=== PATIENT | female | born 1990 | race Caucasian/White ===

== ENCOUNTER 2018-01-23 21:32 | Emergency (ER) | payer BC, SELFPAY ==
[2018-01-23 21:34] VITALS: BP 136/82; PULSE 79; RESP 18; TEMP 36.5; O2SAT 97; BMI 39.0
--- NOTE | 2018-01-23 22:12 | EKG12_ITS ---
Test Reason : WEAKNESS Blood Pressure : / mmHG Vent. Rate : 066 BPM Atrial Rate : 066 BPM P-R Int : 140 ms QRS Dur : 082 ms QT Int : 420 ms P-R-T Axes : 056 007 031 degrees QTc Int : 440 ms Normal sinus rhythm Normal ECG Confirmed by TREY VALDES ([id number]), dictionary editor EVERETTE GARCIA ([id number]) on 02/04/2018 6:43:13 PM Referred By: AL Confirmed By:TREY VALDES
--- NOTE | 2018-01-23 22:12 | CT_ITS ---
CT Head or Brain W/O Contrast INDICATION: HEADACHE,DIZZINESS,NAUSEA AND GENERALIZED WEAKNESS,POSTERIOR HEAD PAIN X 1 WEEK,PT DENIES INJURY,SHIELDED COMPARISON: None TECHNIQUE: Noncontrast axial CT examination of the brain. Radiation dose optimization applied. FINDINGS: The ventricular system is normal in size and symmetric. The cortical sulci, sylvian fissures, and basal cisterns are well seen. The hernandez-white matter junction is distinct. There is no evidence of acute intracranial hemorrhage, mass effect, midline shift, or abnormal extra-axial collection. The calvarium is intact and the visualized paranasal sinuses and mastoid air cells are clear. CT/Brain/Head without Contrast IMPRESSION: No evidence of acute intracranial abnormality by noncontrast CT. at 2301 Reported and signed by: Blanca Navarro MD Electronically Signed: Blanca Navarro MD at 22:59 EDT Tel , Service support ,
--- NOTE | 2018-01-23 22:14 | ED.VISSUMM ---
- ER Visit Summary Date of Service: 01/23/18 Chief Complaint: [Dizziness] History of Present Illness: The patient is a 27 F [presents the emergency department with 1 week of malaise. She has had posterior occipital headaches every day most of the day. She gets about 20 bouts that last for a few seconds where she feels off balance in her vision feels tunneled. Her arms and head feel heavy. She has had intermittent nausea. No fevers or chills no sore throat no cough no abdominal pain appetite has been decreased because of the nausea. Urination has been normal. There was no head injury. Her last menstrual cycle was a week and a half ago and that has been normal. She had similar episodes when she was 15 had an EEG which showed Antoinette mall seizures but she has not followed up or had issues with this in quite some time.] Physical Examination: [] WN WD NAD PERRL EOMI visual slaughter intact MMM NECK supple and nontender, no masses RRR no murmur rub or gallop, no peripheral edema, symmetric radial pulses CTAB no respiratory distress ABDOMEN is soft and nontender, normal bowel sounds, no distension, no rebound or guarding SKIN is warm and dry no rashes Alert and Oriented x3, CN II-XII in tact, no motor or sensory deficits, gait normal cerebellar testing is normal Babinski is downgoing bilaterally patient walks heel to toe without disequilibrium No lymphadenopathy Test Results: [EKG is sinus at a rate of 66 no acute ischemic changes or conduction abnormalities intervals are within normal limits no ST segment changes] Emergency Department Course and Treatment: [Screening labs were obtained and showed a mild elevation of her BUN but are otherwise unremarkable. Urine has small occult blood and leukoesterase but no white cells red cells. She is not . She was given fluids and Zofran. Her symptoms did improve. CT the head is unremarkable. Because of her history of similar episodes when she was 15 that were diagnosed with seizures I will refer her to neurology and she will follow-up with her primary doctor while awaiting appointment. She understands reasons for which to return.] Treatment Plan: [] Disposition: [Discharge] Impression: [Dizziness] This note was generated with [employer] software. It may contain incorrect words, spelling, and punctuation that were not noted in review of the chart prior to signing ED Disposition - Plan for ED Patient: Chief Complaint: Dizziness Referrals: Care Physician,No Primary [NON-STAFF] -
--- NOTE | 2018-01-23 22:20 | ED.RN ---
NO OLD EKGS IN MUSE.
[2018-01-23] MEDS: Ondansetron 4 MG/2 ML Vial IV (22:26)
[2018-01-23 22:28] LABS: Hematocrit 40.3 % (37-47); Hemoglobin 14.1 g/dl (12.0-15.0); Mean Corpuscular Hgb 30.1 pg (27.0-32.0); Mean Corpuscular Volume 86.1 fL (81-99); Mean Platelet Vol. 9.2 fl (6.2-12.0); Platelet Count 383 K/mm3 (150-450); RBC Distribution Width CV 12.4 % (11.6-14.6); RBC Distribution Width SD 39.2 fl (35.1-43.9); Red Blood Count 4.68 M/mm3 (4.2-5.4); White Blood Count 8.1 K/mm3 (4.4-11.0)
[2018-01-23 22:30] LABS: POSITIVE COUNT NO; POSITIVE DIFFERENTIAL NO; POSITIVE MORPHOLOGY NO
[2018-01-23 23:07] LABS: Basophil% 0.3 % (0-1); Lymphocyte % 29.5 % (19-41); Monocyte% 8.4 % (0-10); Neutrophil % 60.5 % (47-70)
[2018-01-23 23:08] LABS: ALB/GLOB Ratio 1.1 RATIO (0.9-2.4); AST(SGOT) 19 U/L (15-37); Absolute Lymphocyte Count 2.33 X10^3/ul (0.83-4.51); Absolute Neutrophil Count 4.8 X10^3/uL (2.0-7.7); Alanine Aminotransfer ALT/SGPT 31 U/L (13-56); Albumin, Serum 4.1 g/dL (3.2-5.0); Alkaline Phosphatase 71 U/L (45-117); Anion Gap 8 (5-15); BUN 20 mg/dL (7-18); BUN/Creat Ratio 24.1 RATIO (10-20); Basophil# 0.02 X10^3/uL; Calcium,Total 8.8 mg/dL (8.5-10.1); Chloride 107 mmol/L (98-107); Creatinine, Serum 0.83 mg/dL (0.55-1.02); EST Glomerular Filtration Rate 88 mL/min (>60); Eosinophil# 0.08 X10^3/uL; Est Glom Filt Rate - Afr Amer 106 mL/min (>60); Estimated Creatinine Clearance 92.42 ml/min; Globulin 3.8 g/dL (2.2-4.2); Glucose 74 mg/dL (74-106); Lymphocyte # 2.33 X10^3/ul (4.0); Monocyte# 0.66 X10^3/uL; Neutrophil # 4.79 X10^3/uL (2.7-7.7); Potassium 3.5 mmol/L (3.5-5.1); Protein, Total 7.9 g/dL (6.4-8.2); Sodium Level 139 mmol/L (136-145); Thyroid Stim Hormone (TSH) 2.56 uIU/mL (0.358-3.74)
[2018-01-23 23:38] LABS: Mucous, Urine 0 SEEN /hpf (<or=2+)
[2018-01-23 23:40] LABS: Color, Urine Yellow (Yellow); Glucose, Dipstick Normal (Normal); Ketone-Dipstick Negative (Negative); Leukocyte Esterase-Dipstick 25 /ul (Negative); Nitrite-Dipstick Negative (Negative); Occult Blood-Urine 25 /ul (Negative); Protein-Dipstick Negative (Negative); Urine Bilirubin Dipstick Negative (Negative); Urine Clarity Sl. Cloudy (Clear); Urine Urobilinogen Normal (Normal)
[2018-01-23 23:43] LABS: Internal QC Validated? YES +Cl - CLEAR BKGD; Pregnancy, Urine Negative Negative
[2018-01-23 23:47] LABS: Amorphous Sediment 1+; Bacteria RARE /hpf (None Seen); Red Blood Cells-Urine 0-5 SEEN /hpf (0-5); Squamous Epithelial Cells - UA 0-5 SEEN /hpf (5-10); White Blood Cells 0-5 SEEN /hpf (0-5)
--- NOTE | 2018-01-24 00:19 | ED.DEP ---
ED Disposition - Plan for ED Patient: Chief Complaint: Dizziness Instructions: ED Dizziness [facility] Referrals: Jethro Reddy MD [STAFF PHYSICIAN] - 1-2 Weeks Seamus Frye MD [Primary Care Provider] - 3-5 Days
[2018-01-24] MEDS: Ketorolac 30 MG/ML Syringe IV (00:20)
[2018-01-24 00:21] VITALS: PULSE 62; RESP 18; O2SAT 98
[2018-01-24 00:33] VITALS: PULSE 62; RESP 18; O2SAT 98
[2018-01-24 00:46] LABS: Carboxyhemoglobin Frac (CO) 1.6 % (0.0-1.5)
== END 2018-01-24 00:34 | disposition home or self-care (01) ==
PROVIDERS: Emergency Provider Emergency Medicine; PCP Family Medicine
DX: R42 Dizziness and giddiness (principal)
CPT/HCPCS: 70450; 80053; 81001; 81025; 82375; 84443; 85025; 93005; 99284; J7030; J7040; A4216; J2405

== ENCOUNTER → 2018-04-04 12:09 | Outpatient (CLI) | payer BC, SELFPAY ==
[2018-04-10 13:05] LABS: HPV Reflexed? NOT INDICATED
== END ==
PROVIDERS: PCP Family Medicine; Visit Provider Obstetrics & Gynecology
DX: Z12.4 Encounter for screening for malignant neoplasm of cervix (principal); Z12.72 Encounter for screening for malignant neoplasm of vagina
CPT/HCPCS: 88175; G0145

== ENCOUNTER → 2018-05-31 09:31 | Outpatient (CLI) | payer BC, SELFPAY ==
--- NOTE | 2018-05-31 10:00 | MRI_ITS ---
STUDY: MRI BRAIN WITHOUT CONTRAST REASON FOR EXAM: Female, 28 years old. H/O seizureS, F/U NO NEW COMPLAINTS. TECHNIQUE: Standardized multiplanar fat and water weighted pulse sequences were obtained. COMPARISON: January 23, 2018 FINDINGS: Normal size of the ventricles and extra-axial spaces for the patient's age. Normal white matter tracts of the supratentorial brain. Normal bilateral basal ganglia. Normal thalami. There is no extra-axial fluid accumulation. Normal flow voids within the major intracranial circulation suggesting patency by spin echo criteria. Normal sella turcica, pituitary gland, infundibular stalk, optic chiasm and hypothalamus. Normal tectal plate and pineal gland. Normal midbrain, pepe and medulla. Normal cerebellum. Normal basal cisterns. Normal bilateral temporal bones. Normal bilateral internal auditory canals. No demonstrated orbital abnormality, within the constraints of a routine brain study. Normal visualized paranasal sinuses. Normal calvarium and skull base. Normal visualized soft tissue structures. Normal visualized upper cervical spine. MRI/Brain without Contrast IMPRESSION: Normal unenhanced MRI of the brain. Electronically Signed: Maxine Mehta MD at 8:17 EDT Tel , Service support ,
== END ==
PROVIDERS: Family Provider Family Medicine; PCP Family Medicine; Referring Provider Psychiatry & Neurology Neurology; Visit Provider Psychiatry & Neurology Neurology
DX: R56.9 Unspecified convulsions (principal)
CPT/HCPCS: 70551

== ENCOUNTER 2019-05-16 14:56 | Emergency (ER) | payer BC, SELFPAY ==
[2019-05-16 14:58] VITALS: BP 125/67; PULSE 80; RESP 22; TEMP 37.1; O2SAT 100; BMI 32.5
--- NOTE | 2019-05-16 15:31 | EKG12_ITS ---
Test Reason : CP Blood Pressure : / mmHG Vent. Rate : 075 BPM Atrial Rate : 075 BPM P-R Int : 138 ms QRS Dur : 082 ms QT Int : 388 ms P-R-T Axes : 058 022 019 degrees QTc Int : 433 ms Normal sinus rhythm Normal ECG Confirmed by CORRINE ALMENDAREZ, VIC ([id number]), commercial production editor NIKKIE BETHEA ([id number]) on 05/19/2019 9:15:51 AM Referred By: COLEEN Confirmed By:VIC CASTLE MD
--- NOTE | 2019-05-16 15:35 | RAD_ITS ---
STUDY: X-RAY CHEST REASON FOR EXAM: Female, 28 years old. Chest pain/pressure TECHNIQUE: Single AP portable view of the chest. COMPARISON: None. FINDINGS: The lungs are clear and expanded. There is no demonstrated pleural abnormality. Normal size heart. Normal mediastinum and eri. Normal visualized pulmonary arteries. Normal visualized aortic arch and descending thoracic aorta. Normal visualized thoracic spine. Normal visualized ribs, clavicles, and shoulders. There is no demonstrated abnormality of the visualized soft tissue structures of the upper abdomen. RAD/Chest 1 View IMPRESSION: Normal x-ray examination of the chest. Electronically Signed: Mandeep Quinteros MD at 15:52 EDT , Service support ,
--- NOTE | 2019-05-16 15:54 | ED.DCSUM_ITS ---
History of Present Illness Chief Complaint: Chest Pain Informant: Patient Onset: Days Narrative: Patient presents to the ED with intermittent chest pain for the last 4 days. She describes as a dull aching sensation. It waxes and wanes. She does report some associated shortness of breath. Today, the pain was more constant and she became worried. She is 5 weeks . She has never had anything like this before. She denies any recent immobilization, estrogen use, history of malignancy. She is no history of PE or DVT. No cardiac risk factors. She is 5 weeks . G3,P1, A1. Past Medical History - Allergies and Home Meds Allergies/Adverse Reactions: Allergies No Known Allergies Allergy (Verified 05/16/19 14:57) Primary Care Physician: Seamus Frye MD [Primary Care Provider] - Smoking Status: Never smoker Review of Systems General: Denies: Chills, Fever, Sweats Eyes: Denies: Visual changes - bilaterally, Diplopia ENT: Denies: Rhinorrhea, Sore throat Cardiovascular: Reports: Chest pain. Denies: Palpitations Respiratory: Denies: Dyspnea, Cough, Dyspnea on exertion Gastrointestinal: Denies: Abdominal pain, Nausea, Vomiting, Diarrhea, Melena, Hematochezia Genitourinary: Denies: Dysuria, Hematuria, Frequency Musculoskeletal: Denies: Back pain, Extremity Pain Skin: Denies: Rash, Wounds Neurological: Denies: Headache, Weakness, Numbness Physical Exam Vital Signs/Narrative: Vital Signs Temp Pulse Resp BP Pulse Ox 05/16/19 14:58 98.7 F 80 22 H 125/67 H 100 General: Well nourished, Well developed, No Acute Distress Head: Normocephalic, Atraumatic Eyes: Perrl, EOMI ENT: Moist mucous membranes, No rhinorrhea Neck: Supple, Nontender Cardiovascular: Regular rate, Regular rhythm, No murmurs Respiratory: No distress, CTA bilaterally, Chest nontender Abdomen: Soft, Nontender, Nondistended, Normal bowel sounds Back: Nontender, Normal Inspection Extremities: Nontender, No edema Skin: Normal color, No rash Neurological: Alert, Oriented x3, Cranial nerves II-XII grossly intact, Normal Strength, Normal Sensation Psychological: Normal affect, Normal Mood Diagnostic/Tx/Re-eval - EKG Initial EKG Interpretation: Sinus Rhythm, No Acute Injury Pattern - Medical Decision Making Patient presents to the ED with a 4-day history of chest pain. PERC negative. EKG shows no ischemic changes and normal sinus rhythm. Chest x-ray is unremarkable. At this time, I think it is safe for the patient be discharged home. She was advised to follow-up with PCP if symptoms persist or worsen as well as her SPINNER OPERATOR. She has an appointment in the next week or so with her SPINNER OPERATOR. She was educated on signs/symptoms to return to the ED. She is provided discharge instructions and agreeable to plan. Impression: Chest pain, unknown etiology Disposition: Home stable ED Disposition - Plan for ED Patient: Disposition: Home or Assisted Living Diagnosis: Chest pain Instructions: CHEST PAIN, Uncertain Cause Referrals: Seamus Frye MD [Primary Care Provider] -
[2019-05-16 16:11] VITALS: BP 119/74; PULSE 79; RESP 18; O2SAT 99
--- NOTE | 2019-05-16 16:11 | ED.RN ---
THIS NURSE REVIEWED D/C INSTRUCTIONS WITH PT. PT VERBALIZED UNDERSTANDING OF INSTRUCTIONS. PT DENIES FURTHER NEEDS OR QUESTIONS AT THIS TIME.
== END 2019-05-16 16:11 | disposition home or self-care (01) ==
PROVIDERS: Emergency Provider Physician Assistant; Family Provider Family Medicine; PCP Family Medicine
DX: O26.891 Other specified pregnancy related conditions, first trimester (principal); R07.9 Chest pain, unspecified; Z3A.01 Less than 8 weeks gestation of pregnancy
CPT/HCPCS: 71045; 93005; 99282

== ENCOUNTER 2020-01-09 09:30 | Inpatient (IN) | payer BC, SELFPAY ==
--- NOTE | 2020-01-08 07:38 | HP.PCM_ITS ---
- Problem List (1) 39 weeks gestation of Status: Acute (2) History of delivery Status: Acute History Date of Admission: 01/09/20 Final VIRGIL: 01/16/20 Gestational age: 38 Weeks and 6 Days History of this : This is a 29 year-old, G 2, P 1, at 39 weeks gestational age who presents for a scheduled repeat section. Medical History: Medical History (Last Updated 01/08/20 @ 07:[address] Monique Lilly, DO) ADD (attention deficit disorder) F98.8 Anemia D64.9 Anxiety F41.9 Deliberate self-cutting Z72.89 Depressed F32.9 History of suicide attempt Z91.5 PTSD (post-traumatic stress disorder) F43.10 Seizure R56.9 Allergies No Known Allergies Allergy (Verified 05/16/19 14:57) Home Medications: Home Medications NK 01/23/18 Smoking Status: Never smoker Alcohol: None Substance Use Type: Cocaine - In past, has not used since early , Methamphetamine - In past, has not used since early Number of Fetus(es): 1 History Past Pregnancies: Past Pregnancies Delivery Date Name GA/ Weeks Outcome Route Wt Infant Sex Labor Length Anesthesia Delivery Location Provider FOB Expected Infant Delivery Method: Repeat Section Physical Exam General: Alert, No apparent distress HEENT: Atraumatic Cardiovascular: Regular rate Lungs: Clear to auscultation Abdomen: Soft, Non Tender, Non-Distended Extremities:: No edema Neurological: Neuro grossly intact Estimated gestational size: Appropriate for gestational size Presentation: Cephalic Assessment/Plan All Active Problems 39 weeks gestation of (Acute) History of delivery (Acute) This is a 29 year-old, who presents at 39 weeks for a scheduled repeat C- section. She has a history of a prior section. After discussion of risks, benefits, alternatives to repeat section the patient consented and desires to proceed with surgery. General preoperative and postoperative care was reviewed. Questions were answered. The patient indicates a desire to proceed with a repeat .
[2020-01-09] VITALS (19 sets, daily range): BP systolic 92–116; BP diastolic 36–96; PULSE 60–79; RESP 14–18; TEMP 35.8–36.7; O2SAT 97–100; BMI 36.8
[2020-01-09] MEDS: Lactated Ringers 1,000 ML 999 ML IV (09:50)
[2020-01-09 10:08] LABS: Absolute Lymphocyte Count 1.44 X10^3/uL (0.83-4.51); Absolute Neutrophil Count 4.4 X10^3/uL (2.0-7.7); Basophil# 0.04 X10^3/uL; Basophil% 0.6 % (0-1); Eosinophil# 0.06 X10^3/uL; Eosinophils% 0.9 % (0-5); Hematocrit 34.9 % (37-47); Hemoglobin 11.9 g/dL (12.0-15.0); Lymphocyte # 1.44 X10^3/ul (4.0); Lymphocyte % 21.3 % (19-41); Mean Corp Hgb Conc 34.1 g/dL (32-36); Mean Corpuscular Hgb 30.7 pg (27.0-32.0); Mean Corpuscular Volume 90.2 fL (81-99); Monocyte# 0.77 X10^3/uL; Monocyte% 11.4 % (0-10); NRBC Flagged by Analyzer 0 % (0-5); Neutrophil # 4.44 X10^3/uL (2.7-7.7); Neutrophil % 65.5 % (47-70); Platelet Count 285 K/mm3 (150-450); RBC Distribution Width CV 12.7 % (11.6-14.6); RBC Distribution Width SD 41.3 fl (35.1-43.9); Red Blood Count 3.87 M/mm3 (4.2-5.4); White Blood Count 6.8 K/mm3 (4.4-11.0)
[2020-01-09] MEDS: Lactated Ringers 1,000 ML 150 ML IV (10:58)
[2020-01-09] MEDS: Sodium Citrate/Citric Acid 30 ML UDC PO (11:55)
[2020-01-09] MEDS: Cefazolin 2 GM in 0.9% Normal Saline 100 ML IV (12:00)
--- NOTE | 2020-01-09 13:51 | OP.PCM_ITS ---
Problem List (1) 39 weeks gestation of Status: Acute (2) History of delivery Status: Acute (3) Encounter for intrauterine device placement Status: Acute Report of Operation Date of Procedure: 01/09/20 Pre-Operative Diagnosis: 39 week gestation, history of prior section, desires repeat section, desires Mirena IUD placement Post-Operative Diagnosis: As above Surgery/Procedure Performed:: RLTCS via pfannenstiel incision, Mirena IUD placement Description of Surgical Findings:: Moderate amount of adhesions. The fascia was densely adhered to the rectus muscles. The rectus muscles were adhered in the midline. The omentum was significantly adhered to the anterior peritoneum. Minimal amount of adhesions from bladder to anterior surface of uterus. Normal-appearing uterus, bilateral tubes, bilateral ovaries. Viable female cephalic presentation. Clear fl uid. Intact and normal-appearing placenta with three-vessel cord. Type of Anesthesia:: Spinal Special Medications: Mirena IUD Specimen's removed: Placenta Drains: Denis Estimated Blood Loss (mL): 1000 Fluids Replaced: 1500 Description of Procedure: Risks benefits, alternatives to the Mirena IUD were discussed with the patient. Discussed option for immediate placement versus placement at the 6-week visit. Patient consented to immediate Mirena IUD placement and desired for the IUD be placed at the time of the . Patient was taken to the operating room where spinal anesthesia was found to be adequate. She was prepped and draped in the dorsal position with a leftward tilt. A Pfannenstiel skin incision was made with a scalpel and carried down to the underlying layer of fascia. The fascia was incised in midline. The fascia was extended laterally using Kelly scissors. The fascia was dissected off of the rectus muscles using a combination of sharp and blunt dissection. The fascia was densely adhered to the rectus muscles. Upon dissecting the fascia off the rectus muscles, the peritoneal cavity was entered. A sweep was performed in the peritoneal cavity and omental adhesions were noted. The incision was extended bluntly. Significant omental adhesions were noted to the anterior peritoneum. Adhesions were taken down with Bovie cautery and the omentum was noted to be hemostatic. Bladder flap was created and there were minimal adhesions of the bladder to the anterior surface of the uterus. A low transverse incision was made with a scalpel on the uterus. The infant was delivered without force or delay in cephalic presentation. Cord was clamped and cut immediately due to bleeding from the hysterotomy. The was handed off to the nursery staff. The placenta was removed. The placenta was normal-appearing with a three-vessel cord. Uterus was exteriorized. The uterus was cleared of all clot and debris. The Mirena IUD was placed at the fundus of the uterus. The cervix was dilated and the Mirena IUD strings were brought down to the cervix. The hysterotomy was closed in a running locked fashion. It was closed in 2 layers using Vicryl. Several additional [id number] sutures were placed for hemostasis. The uterus was placed back into the abdomen. Arrista was placed over the hysterotomy. Hemostasis was again noted. The peritoneum was unable to be closed given the omental adhesions. The omentum was again examined and noted to be hemostatic. The rectus muscles were examined and noted to be hemostatic. The fascia was then closed in a running layer with Vicryl. The subcutaneous space was irrigated and made hemostatic with Bovie cautery. The subcutaneous space was reapproximated with Vicryl. The skin was closed with subcuticular fashion using Monocryl suture. Instrument counts were correct. The patient was taken to recovery in stable condition. Grafts/Implants Used: Mirena IUD - Complications None - Admit VTE Documentation VTE Present on Admission: No VTE Mechan Device Prophylaxis: SCD's VTE Pharm Prophylaxis ordered?: Yes Delivery Classification: Scheduled Indications for : Repeat Elective Amniotic Membrane Rupture Type: Artificial Amniotic Fluid Description: Clear Drain: Denis to straight drain Cord Entanglement: None Cord Vessel Description: 3 Vessels Infant Gender: Female (1 minute): 8 (5 minute): 9 Delayed cord clamping: No Antibiotic Given: Ancef 2 grams IV x1 Pt instructed on risks of surgery: Bleeding, Infection, Need for Future C- Sections, Injury to surrounding structure(s) including bowel and bladder, Availability of other non-permanent control options Complications: None
[2020-01-09] MEDS: Oxytocin 30 units/NS 500 ml 30 UNITS/500 ML IV.SOLN 167 UNITS IV (14:15)
[2020-01-09] MEDS: Ondansetron 4 MG/2 ML Vial IV ×2 (16:30→20:48)
[2020-01-09 16:51] LABS: Amphetamine Urine VISTA NEGATIVE (<1000 ng/mL); Barbiturate Urine VISTA NEGATIVE (< 200 ng/mL); Benzodiazepine Urine VISTA NEGATIVE (< 200 ng/mL); Cocaine Urine VISTA NEGATIVE (< 300 ng/mL); Ecstacy Urine VISTA NEGATIVE (< 500 ng/mL); Methadone Urine VISTA NEGATIVE (< 300 ng/mL); PCP Urine VISTA NEGATIVE (< 25 ng/mL); THC Urine VISTA NEGATIVE (< 50 ng/mL); Vista UDS pH Range 7
[2020-01-09] MEDS: Lactated Ringers 1,000 ML 100 ML IV (17:26)
[2020-01-09 18:26] LABS: Hematocrit 32.7 % (37-47); Hemoglobin 11.1 g/dL (12.0-15.0); Mean Corp Hgb Conc 33.9 g/dL (32-36); Mean Corpuscular Hgb 30.8 pg (27.0-32.0); Mean Corpuscular Volume 90.8 fL (81-99); Mean Platelet Vol. 10.2 fl (6.2-12.0); Platelet Count 274 K/mm3 (150-450); RBC Distribution Width CV 12.7 % (11.6-14.6); RBC Distribution Width SD 42.2 fl (35.1-43.9); White Blood Count 12.6 K/mm3 (4.4-11.0)
[2020-01-09] MEDS: Ketorolac 30 MG/ML Syringe IV (18:59)
--- NOTE | 2020-01-09 21:45 | NURSING ---
Pt up to chair at 2044, ambulating well with no assistance from RN walking beside pt. Pt reports no pain but some nausea. Pt given zofran for nausea at 2047. Pt back to bed at 2134, tolerated well. Pt still slightly nauseous. RN will continue to monitor.
--- NOTE | 2020-01-09 22:10 | NURSING ---
Dr. Lilly notified of lower BP by previous RN, RN to continue with current plan of care.
[2020-01-10 00:55] VITALS: BP 109/67; PULSE 75; RESP 16; TEMP 36.5; O2SAT 98
[2020-01-10] MEDS: Ketorolac 30 MG/ML Syringe IV ×4 (00:58→18:22)
[2020-01-10] MEDS: 0.9% Saline Lock 10 ML Syringe IV ×4 (00:59→18:23)
[2020-01-10] MEDS: Enoxaparin 40 MG/0.4 ML Syringe SC (00:59)
[2020-01-10 04:36] VITALS: BP 100/55; PULSE 63; RESP 16; TEMP 36.6; O2SAT 97
[2020-01-10 05:50] LABS: Hematocrit 27.5 % (37-47); Hemoglobin 9.3 g/dL (12.0-15.0); Mean Corp Hgb Conc 33.8 g/dL (32-36); Mean Corpuscular Hgb 30.9 pg (27.0-32.0); Mean Corpuscular Volume 91.4 fL (81-99); Mean Platelet Vol. 10.1 fl (6.2-12.0); Platelet Count 244 K/mm3 (150-450); RBC Distribution Width CV 12.9 % (11.6-14.6); RBC Distribution Width SD 42.1 fl (35.1-43.9); Red Blood Count 3.01 M/mm3 (4.2-5.4); White Blood Count 8.9 K/mm3 (4.4-11.0)
[2020-01-10 08:00] VITALS: BP 95/63; PULSE 68; RESP 16; TEMP 36.7
--- NOTE | 2020-01-10 10:52 | PCM.PN.OB ---
Patient Problems: Active and Suspected Problems (Last Updated 01/08/20 @ 07:[address] Monique Lilly, DO) Encounter for intrauterine device placement (Acute) Subjective: Doing well per patient and nursing staff. Ambulating and taking PO without difficulty. Voiding and passing flatus. . Mood stable. Partner at bedside. Denies any increased pain, controlled with pain medication. Denies chest pain, shortness of breath, leg pain or other concerns. Lochia normal. - Physical Exam Vitals/I&O's: Vital Signs Temp Pulse Resp BP Pulse Ox 98.1 F 68 16 95/63 97 01/10/20 08:00 01/10/20 08:00 01/10/20 08:00 01/10/20 08:00 01/10/20 04:36 Oxygen Delivery Method Room Air Weight: 221 lb 12.56 oz Body Mass Index (BMI) 36.8 Intake and Output for Last 24 Hours 01/08/20 01/09/20 01/10/20 23:59 23:59 23:59 Intake Total 3265 / 3265 755 / 755 Output Total 1150 / 1150 1500 / 1500 Balance 2115 / 2115 -745 / -745 General: Alert, Oriented x3, Cooperative HEENT: Atraumatic, Normocephalic Neck: Trachea Midline Lungs: Clear to auscultation, Normal air movement, No rhonchi, No wheeze Cardiovascular: Regular rate, Regular Rhythm, No murmurs Abdomen: Hypoactive Bowel Sounds - Fundus firm 3 below U. Dressing dry and intact Extremities: No edema Psych/Mental Status: Normal Affect, Appropriate Laboratory Results 01/09/20 09:50: Blood Type B POSITIVE, Antibody Screen NEGATIVE 01/09/20 13:00: Urine Opiates Screen NEGATIVE, Urine Methadone Screen NEGATIVE, Ur Barbiturates Screen NEGATIVE, Ur Phencyclidine Scrn NEGATIVE, Ur Amphetamines Screen NEGATIVE, U Methamphetamin-MDMA NEGATIVE, U Benzodiazepines Scrn NEGATIVE, Urine Cocaine Screen NEGATIVE, U Cannabinoids Screen NEGATIVE, Ur Drug Screen Comment 01/09/20 18:00: WBC 12.6 H, RBC 3.60 L, Hgb 11.1 L, Hct 32.7 L, MCV 90.8, MCH 30.8, MCHC 33.9, RDW Std Deviation 42.2, RDW Coeff of Rubén 12.7, Plt Count 274, MPV 10.2 01/10/20 05:40: WBC 8.9, RBC 3.01 L, Hgb 9.3 L, Hct 27.5 L, MCV 91.4, MCH 30.9, MCHC 33.8, RDW Std Deviation 42.1, RDW Coeff of Rubén 12.9, Plt Count 244, MPV 10.1 Current Medications Acetaminophen (Tylenol) 1,000 mg PO Q8H PRN PRN Reason: Pain Score 1-3/10 Bisacodyl (Dulcolax) 10 mg RECTAL UD PRN PRN Reason: If no BM Enoxaparin Sodium (Lovenox) 40 mg SC DAILY [facility] Last Admin: 01/10/20 00:59 Dose: 40 mg Documented by: Hydrocortisone (Hytone) 1 applic TOPICAL TID PRN PRN; Protocol PRN Reason: Discomfort Lactated Ringer's () 1,000 mls @ 100 mls/hr IV .Q10H [facility] Last Admin: 01/10/20 01:22 Dose: Not Given Documented by: Naloxone HCl 4 mg/ Dextrose 504 mls @ 0 mls/hr IV .Q0M PRN; Protocol PRN Reason: To maintain Resp. rate >10 Ibuprofen (Motrin) 600 mg PO Q6H PRN PRN PRN Reason: Pain Score 1-3/10 Ketorolac Tromethamine (Toradol (Bkc)) 30 mg IV Q6 [facility] Stop: 01/11/20 12:01 Last Admin: 01/10/20 06:33 Dose: 30 mg Documented by: Methylergonovine Maleate (Methergine) 0.2 mg IM X1 PRN PRN Reason: Uterine Atony Naloxone HCl (Narcan) 0.02 mg IV Q1M PRN PRN Reason: RR <10 and pt unresponsive Ondansetron HCl (Zofran) 4 mg IV Q4H PRN PRN PRN Reason: Nausea Last Admin: 01/09/20 20:48 Dose: 4 mg Documented by: Oxycodone HCl (Oxyir) 5 - 10 mg PO Q4H PRN PRN PRN Reason: Pain Score 4-10/10 Prochlorperazine Edisylate (Compazine Iv) 10 mg IV Q6H PRN PRN PRN Reason: NAUSEA Senna/Docusate Sodium (Senokot-S, Nai-Colace) 0 tablet PO DAILY PRN PRN Reason: Constipation Simethicone (Mylicon) 80 mg PO PCHS PRN PRN Reason: Indigestion/stomach pain Last Admin: 01/10/20 06:40 Dose: 80 mg Documented by: Sodium Chloride () 5 - 15 ml IV UD PRN PRN Reason: SALINE FLUSH Last Admin: 01/10/20 06:34 Dose: 10 ml Documented by: Medical Necessity - Tobacco Use Smoking Status: Never smoker Assessment/Plan All Active Problems (Last Updated 01/08/20 @ 07:[address] Monique Lilly, DO) 39 weeks gestation of (Acute) History of delivery (Acute) Encounter for intrauterine device placement (Acute) A:POD #1 Section P: 1) Routine postoperative and care 2) Pain management 3) Hgb stable, asymptomatic 4) Planning D/C home tomorrow
[2020-01-10 12:00] VITALS: BP 102/66; PULSE 69; RESP 16; TEMP 36.7
[2020-01-10] MEDS: Senna/Docusate Sodium 1 Tablet PO (12:38)
--- NOTE | 2020-01-10 15:35 | CASEMGMT ---
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 Financial Status: MOB DENIES ANY FINANCIAL CONCERNS. Supplies: MOB REPORTS HAS ALL NEEDS MET FOR BABY INCLUDING; DIAPERS, WIPES, CLOTHES, CRIB, CAR SEAT ETC. Childcare/Caregiver(s): MOB REPORTS IS A STAY AT HOME MOM AND WILL BE MAIN CAREGIVER FOR SAVANNA PIPER. Transportation: MOB DENIES ANY ISSUES WITH TRANSPORTATION. Programs/Agencies Involved: NONE PER MOB Children Services/Legal Issues: NONE PER MOB Behavioral Health Issues: Mental Health History: MOB REPORTS HISTORY OF DEPRESSION AND ANXIETY CHILD AND IN EARLY 21?S. MOB REPORTS WAS NOT PRESCRIBED MEDICATION. MOB REPORTS DID ATTEND COUNSELING IN THE PAST. MOB DENIES ANY CURRENT MENTAL HEALTH CONCERNS. FOB DENIES ANY HISTORY OF MENTAL HEALTH. Substance Use History: MOB ADMITS TO RECREATIONAL USE OF DRUGS IN EARLY 21?S. MOB DENIES ANY USE OF SUBSTANCES SINCE CHILDREN WERE BORN (OVER 5+ YEARS.) FOB DENIES ANY SUBSTANCE USE. Support Systems: MOB REPORTS GOOD SUPPORT FROM BOTH SIDES OF FAMILY- FOB AND MOB?S. MOB REPORTS GOOD SUPPORT FROM SHANTI COOLEY. Depression/Shaken Baby/Safe Sleeping EDUCATIONAL RESOURCES PROVIDED AND DISCUSSED. NO QUESTIONS OR CONCERNS. ASSESSMENT: MET WITH MOB AND FOB IN ROOM. UPON ENTERING ROOM, MOB NURSING SAVANNA PIPER. MOB REPORTS COMFORTABLE WITH COMPLETING ASSESSMENT AT THIS TIME. INTRODUCED ROLE AND REASON FOR REFERRAL. MOB DISCUSSED MENTAL HEALTH AND SUBSTANCE USE HISTORY. MOB REPORTS HISTORY OF DEPRESSION, ANXIETY, PTSD AND ADD. MOB REPORTS NOT TREATED WITH MEDICATION AND WAS IN COUNSELING CHILD AND DURING EARLY 21?S. MOB REPORTS HISTORY OF RECREATIONAL DRUG USE AND STATES HAS NOT USED SINCE BEFORE HAVING HER FIRST CHILD, ANGELA. MOB DENIES ANY CURRENT ISSUES. MOB AND YASIR SHANTI LEYDA ARE AND HAVE BEEN TOGETHER FOR OVER A YEAR AND A HALF. MOB HAS A 5-YEAR-OLD DAUGHTER FROM PREVIOUS RELATIONSHIP. SAVANNA PIPER IS THEIR FIRST CHILD TOGETHER. MOB REPORTS GOOD SUPPORT FROM FOB. MOB REPORTS HAS ALL NEEDS MET FOR BABY. EDUCATIONAL INFORMATION REVIEWED AND PROVIDED ON POST DEPRESSION, SAFE SLEEPING, AND SHAKEN BABY. MOB DENIES ANY QUESTIONS OR CONCERNS. DISCUSSED ASSESSMENT WITH MOB?S NURSE, HARRISON WHO DENIES ANY CONCERNS FOR MOB, FOB OR BABY GIRL AT THIS TIME. PLAN: HOME WITH RESOURCES PROVIDED. No other services requested or indicated. -Carla Cadena, WAX BLENDER, ISOTOPE TECHNOLOGIST
[2020-01-10 20:45] VITALS: BP 112/51; PULSE 80; RESP 16; TEMP 36.4
[2020-01-10] MEDS: oxyCODONE 5 MG Tablet PO (23:01)
[2020-01-11] MEDS: 0.9% Saline Lock 10 ML Syringe IV ×2 (00:01→12:30)
[2020-01-11] MEDS: Ketorolac 30 MG/ML Syringe IV ×3 (00:01→12:30)
[2020-01-11 02:35] VITALS: BP 97/54; PULSE 73; RESP 16; TEMP 36.3
[2020-01-11 08:00] VITALS: BP 108/71; PULSE 69; RESP 18; TEMP 36.9
[2020-01-11] MEDS: Enoxaparin 40 MG/0.4 ML Syringe SC (09:29)
[2020-01-11] MEDS: Acetaminophen 500 MG Tablet 1000 MG PO (09:30)
[2020-01-11] MEDS: Senna/Docusate Sodium 1 Tablet PO (09:30)
--- NOTE | 2020-01-11 10:50 | PN.OBGYN_ITS ---
Patient Problems: Active and Suspected Problems (Last Updated 01/08/20 @ 07:[address] Monique Lilly, DO) Encounter for intrauterine device placement (Acute) Subjective: Doing well per patient and nursing staff. Ambulating and taking PO without difficulty. Voiding and passing flatus. without difficulty. Denies chest pain, shortness of breath, leg pain or increased pain. Lochia normal. Planning D/C home today. - Physical Exam Vitals/I&O's: Vital Signs Temp Pulse Resp BP Pulse Ox 98.5 F 69 18 108/71 97 01/11/20 08:00 01/11/20 08:00 01/11/20 08:00 01/11/20 08:00 01/10/20 04:36 Oxygen Delivery Method Room Air Weight: 221 lb 12.56 oz Body Mass Index (BMI) 36.8 Intake and Output for Last 24 Hours 01/09/20 01/10/20 01/11/20 23:59 23:59 23:59 Intake Total 3265 / 3265 755 / 755 Output Total 1150 / 1150 1500 / 1500 Balance 2115 / 2115 -745 / -745 General: Alert, Oriented x3, Cooperative HEENT: Atraumatic, Normocephalic Neck: Trachea Midline Lungs: Clear to auscultation, Normal air movement, No rhonchi, No wheeze Cardiovascular: Regular rate, Regular Rhythm, No murmurs Abdomen: Bowel Sounds Present - Fundus firm 2 below U. Dressing dry and intact. Appropriately tender Extremities: No edema Psych/Mental Status: Normal Affect, Appropriate Current Medications Acetaminophen (Tylenol) 1,000 mg PO Q8H PRN PRN Reason: Pain Score 1-3/10 Last Admin: 01/11/20 09:30 Dose: 1,000 mg Documented by: Bisacodyl (Dulcolax) 10 mg RECTAL UD PRN PRN Reason: If no BM Enoxaparin Sodium (Lovenox) 40 mg SC DAILY [facility] Last Admin: 01/11/20 09:29 Dose: 40 mg Documented by: Hydrocortisone (Hytone) 1 applic TOPICAL TID PRN PRN; Protocol PRN Reason: Discomfort Naloxone HCl 4 mg/ Dextrose 504 mls @ 0 mls/hr IV .Q0M PRN; Protocol PRN Reason: To maintain Resp. rate >10 Ibuprofen (Motrin) 600 mg PO Q6H PRN PRN PRN Reason: Pain Score 1-3/10 Ketorolac Tromethamine (Toradol (Bkc)) 30 mg IV Q6 QUYEN Stop: 01/11/20 12:01 Last Admin: 01/11/20 05:35 Dose: 30 mg Documented by: Methylergonovine Maleate (Methergine) 0.2 mg IM X1 PRN PRN Reason: Uterine Atony Naloxone HCl (Narcan) 0.02 mg IV Q1M PRN PRN Reason: RR <10 and pt unresponsive Ondansetron HCl (Zofran) 4 mg IV Q4H PRN PRN PRN Reason: Nausea Last Admin: 01/09/20 20:48 Dose: 4 mg Documented by: Oxycodone HCl (Oxyir) 5 - 10 mg PO Q4H PRN PRN PRN Reason: Pain Score 4-10/10 Last Admin: 01/10/20 23:01 Dose: 5 mg Documented by: Prochlorperazine Edisylate (Compazine Iv) 10 mg IV Q6H PRN PRN PRN Reason: NAUSEA Senna/Docusate Sodium (Senokot-S, Nai-Colace) 0 tablet PO DAILY PRN PRN Reason: Constipation Last Admin: 01/11/20 09:30 Dose: 2 tablet Documented by: Simethicone (Mylicon) 80 mg PO PCHS PRN PRN Reason: Indigestion/stomach pain Last Admin: 01/10/20 23:01 Dose: 80 mg Documented by: Sodium Chloride () 5 - 15 ml IV UD PRN PRN Reason: SALINE FLUSH Last Admin: 01/11/20 00:01 Dose: 10 ml Documented by: Medical Necessity - Tobacco Use Smoking Status: Never smoker Assessment/Plan All Active Problems (Last Updated 01/08/20 @ 07:[address] Monique Lilly, DO) 39 weeks gestation of (Acute) History of delivery (Acute) Encounter for intrauterine device placement (Acute) A:POD #2 Section P: 1) Routine care 2) Discharge and instructions reviewed 3) Incision check in 2 weeks, appt already made 4) Discussed removing dressing 7 days post op 5) Pain medication to pharmacy.
--- NOTE | 2020-01-11 11:00 | DCINST_ITS ---
Discharge Diet: No Restrictions Discharge Activity: May Not Drive - for 2 weeks or while taking narcotic pain meds., May not drive while taking narcotic pain medications., May Shower, May Take a Tub Bath - in 7 days. May resume sexual activity in: 4-6 weeks Weight Bearing Status: Full weight bearing Lifting Restrictions: 20 pounds Additional Activity Instructions:: Nothing in the vagina for 4-6 weeks. You may return to work/school in 6 weeks. Call your doctor if your incision/area has: Continuous Slow Oozing, Sudden Increased Bleeding, Increased Pain/ Swelling, Increased Redness, Foul Smelling Discharge Call your doctor if you observe: Fever of 101 or Higher, Inability to urinate, Inability to have a bowel movement, Using more than one pad per hour, Shortness of breath, Chest pain, Increased palpitations (irregular heartbeat), Calf discomfort, Uncontrolled pain Suture Line Care: Avoid Pulling/Pushing, Avoid Pinching/Bending Cleanse incision/area with: Keep Dressing Clean & Dry - Remove 7 days after delivery Additional Instructions: If you experience any of the following, contact your healthcare provider. * Bleeding that soaks a pad every hour for 2 hours * Fever 100.4 or higher * Unrelieved incision or abdominal pain * Swelling, redness, discharge or bleeding from your incision or episiotomy site * Your incision begins to separate * Problems urinating (including inability to urinate or burning while urinating). * Visual changes * Severe headache * Flu-like symptoms * Pain or redness in one of both of your breasts * Pain, warmth, tenderness or swelling in your legs, especially the calf area * Frequent nausea and vomiting * Symptoms of depression or anxiety If you experience any of the following, call 911 or go to the nearest Emergency Room. * Chest pain * Problems breathing * Seizure activity * Partial or complete paralysis of a body part, slurred speech, weakness or drooping of the face, or a sudden inability to walk or hold your balance Allergies/Adverse Reactions: Allergies sertraline [From Zoloft] Allergy (Verified 01/09/20 09:42) PT UNSURE OF REACTION Medications to take at Discharge Vits [Prenatabs FA ] 1 tab PO DAILY 01/09/20 Ferrous Sulfate 325 mg PO BID 30 Days #60 tab 01/11/20 Oxycodone HCl/Acetaminophen [Percocet 5/325] 1 - 2 tablet PO Q4H PRN PRN 7 Days #20 tablet 01/11/20 The following prescriptions were given: Ferrous Sulfate 325 mg PO BID 30 Days #60 tab Transmission Status: Pending to [facility] Oxycodone HCl/Acetaminophen [Percocet 5/325] 1 - 2 tablet PO Q4H PRN PRN 7 Days #20 tablet PRN Reason: Pain Transmission Status: Sent to [facility] Follow-Up: Call to make an appointment with your doctor for an incision check in 1-2 weeks. You will also need a 6 week post- follow up appointment. Test results from this visit will be discussed in further detail at your follow- up appointment, if applicable. Please Follow Up With: Monique Lilly DO Primary Care Physician: Seamus Frye MD [Primary Care Provider] -
[2020-01-11 11:02] VITALS: BP 111/71; PULSE 69; RESP 18; TEMP 36.8
--- NOTE | 2020-01-11 11:02 | DS.PCM_ITS ---
Discharge Date and Diagnosis - Problem List Patient Problems: Active and Suspected Problems (Last Updated 01/08/20 @ 07:[address] Monique Lilly DO) Encounter for intrauterine device placement (Acute) Delivery by section (Acute) Acute blood loss as cause of postoperative anemia (Acute) Date of Admission: 01/09/20 Date of Discharge: 01/11/20 - Primary Discharge Diagnosis Active and Suspected Problems (Last Updated 01/08/20 @ 07:[address] Monique Lilly DO) Encounter for intrauterine device placement (Acute) Hospital Course and Treatment Summary of Care Provided: This is a 29 year-old, G 2, P 1, at 39 weeks gestational age who presents for a scheduled repeat section. course uncomplicated. Acute blood loss anemia secondary to surgery, asymptomatic. Discharged home on post op day #2. ] Patient Problems: Active and Suspected Problems (Last Updated 01/08/20 @ 07:[address] Monique Lilly DO) Encounter for intrauterine device placement (Acute) Delivery by section (Acute) Acute blood loss as cause of postoperative anemia (Acute) - Physical Exam Vitals/I&O's: Vital Signs Temp Pulse Resp BP Pulse Ox 98.5 F 69 18 108/71 97 01/11/20 08:00 01/11/20 08:00 01/11/20 08:00 01/11/20 08:00 01/10/20 04:36 Oxygen Delivery Method Room Air Weight: 221 lb 12.56 oz Body Mass Index (BMI) 36.8 Intake and Output for Last 24 Hours 01/09/20 01/10/20 01/11/20 23:59 23:59 23:59 Intake Total 3265 / 3265 755 / 755 Output Total 1150 / 1150 1500 / 1500 Balance 2115 / 2115 -745 / -745 Current Medications Acetaminophen (Tylenol) 1,000 mg PO Q8H PRN PRN Reason: Pain Score 1-3/10 Last Admin: 01/11/20 09:30 Dose: 1,000 mg Documented by: Bisacodyl (Dulcolax) 10 mg RECTAL UD PRN PRN Reason: If no BM Enoxaparin Sodium (Lovenox) 40 mg SC DAILY QUYEN Last Admin: 01/11/20 09:29 Dose: 40 mg Documented by: Hydrocortisone (Hytone) 1 applic TOPICAL TID PRN PRN; Protocol PRN Reason: Discomfort Naloxone HCl 4 mg/ Dextrose 504 mls @ 0 mls/hr IV .Q0M PRN; Protocol PRN Reason: To maintain Resp. rate >10 Ibuprofen (Motrin) 600 mg PO Q6H PRN PRN PRN Reason: Pain Score 1-3/10 Ketorolac Tromethamine (Toradol (Bkc)) 30 mg IV Q6 QUYEN Stop: 01/11/20 12:01 Last Admin: 01/11/20 05:35 Dose: 30 mg Documented by: Methylergonovine Maleate (Methergine) 0.2 mg IM X1 PRN PRN Reason: Uterine Atony Naloxone HCl (Narcan) 0.02 mg IV Q1M PRN PRN Reason: RR <10 and pt unresponsive Ondansetron HCl (Zofran) 4 mg IV Q4H PRN PRN PRN Reason: Nausea Last Admin: 01/09/20 20:48 Dose: 4 mg Documented by: Oxycodone HCl (Oxyir) 5 - 10 mg PO Q4H PRN PRN PRN Reason: Pain Score 4-10/10 Last Admin: 01/10/20 23:01 Dose: 5 mg Documented by: Prochlorperazine Edisylate (Compazine Iv) 10 mg IV Q6H PRN PRN PRN Reason: NAUSEA Senna/Docusate Sodium (Senokot-S, Nai-Colace) 0 tablet PO DAILY PRN PRN Reason: Constipation Last Admin: 01/11/20 09:30 Dose: 2 tablet Documented by: Simethicone (Mylicon) 80 mg PO HS PRN PRN Reason: Indigestion/stomach pain Last Admin: 01/10/20 23:01 Dose: 80 mg Documented by: Sodium Chloride () 5 - 15 ml IV UD PRN PRN Reason: SALINE FLUSH Last Admin: 01/11/20 00:01 Dose: 10 ml Documented by: Discharge Diet: No Restrictions Discharge Activity: May Not Drive - for 2 weeks or while taking narcotic pain meds., May not drive while taking narcotic pain medications., May Shower, May Take a Tub Bath - in 7 days. May resume sexual activity in: 4-6 weeks Weight Bearing Status: Full weight bearing Additional Activity Instructions:: Nothing in the vagina for 4-6 weeks. You may return to work/school in 6 weeks. Call your doctor if your incision/area has: Continuous Slow Oozing, Sudden Increased Bleeding, Increased Pain/ Swelling, Increased Redness, Foul Smelling Discharge Call your doctor if you observe: Fever of 101 or Higher, Inability to urinate, Inability to have a bowel movement, Using more than one pad per hour, Shortness of breath, Chest pain, Increased palpitations (irregular heartbeat), Calf discomfort, Uncontrolled pain Suture Line Care: Avoid Pulling/Pushing, Avoid Pinching/Bending Cleanse incision/area with: Keep Dressing Clean & Dry - Remove 7 days after delivery Home Medications: Medications to take at Discharge Vits [Prenatabs FA ] 1 tab PO DAILY 01/09/20 Ferrous Sulfate 325 mg PO BID 30 Days #60 tab 01/11/20 Oxycodone HCl/Acetaminophen [Percocet 5/325] 1 - 2 tablet PO Q4H PRN PRN 7 Days #20 tablet 01/11/20 Following Prescrptions Were Given to Patient: Ferrous Sulfate 325 mg PO BID 30 Days #60 tab Transmission Status: Pending to [facility] Oxycodone HCl/Acetaminophen [Percocet 5/325] 1 - 2 tablet PO Q4H PRN PRN 7 Days #20 tablet PRN Reason: Pain Transmission Status: Sent to [facility] Primary Care Physician: Seamus Frye MD [Primary Care Provider] - Please Follow Up With: Monique Lilly DO Medical Necessity - Tobacco Use Smoking Status: Never smoker Meaningful Use Info Meaningful Use Diagnoses (Choose all that apply): None applicable
== END 2020-01-11 14:55 | disposition home or self-care (01) | DRG 787 ==
PROVIDERS: Admitting Provider Obstetrics & Gynecology; PCP Family Medicine; Referring Provider Obstetrics & Gynecology; Visit Provider Obstetrics & Gynecology
PROC: 10D00Z1 Extraction of Products of Conception, Low, Open Approach (ICD-10-PCS; CPT 59514; principal; 2020-01-09 11:45)
DX: O34.211 Maternal care for low transverse scar from previous cesarean delivery (principal); D62 Acute posthemorrhagic anemia; O99.02 Anemia complicating childbirth; Z37.0 Single live birth; Z3A.39 39 weeks gestation of pregnancy; Z91.5 Personal history of self-harm; Z72.89 Other problems related to lifestyle; Z30.430 Encounter for insertion of intrauterine contraceptive device; K66.0 Peritoneal adhesions (postprocedural) (postinfection)
CPT/HCPCS: 80307; 85025; 85027; 86850; 86900; 86901; 99218; J7120; A4216; G0378; J2405